=== PATIENT | female | born 1990 | race Two or more races ===

== ENCOUNTER 2018-11-11 23:01 | Emergency (ER) | payer OTHER ==
[~2018-11-11] VITALS: Ht 154.9 cm; Wt 104.3 kg
[2018-11-12 00:18] VITALS: BP 171/88
[2018-11-12 01:10] LABS: Basophils # (auto) 0 uL; Basophils % (auto) 0.3 % (0.0-2.0); Eosinophils # (auto) 0 uL; Eosinophils % (auto) 0.1 % (0.0-7.0); Hematocrit 39.9 % (36.0-46.0); Hemoglobin 13.4 g/dL (12.2-16.2); Lymphocytes # (auto) 0.9 uL; Lymphocytes % (auto) 21.7 % (10.0-50.0); Mean Corpuscular Hemoglobin 28.3 pg (28.0-32.0); Mean Corpuscular Hgb Conc. 33.5 g/dL (32.0-36.0); Mean Corpuscular Volume 84.3 fL (80.0-100.0); Monocytes # (auto) 0.5 uL; Monocytes % (auto) 11.8 % (0.0-12.0); Neutrophils # (auto) 2.8 uL; Neutrophils % (auto) 66.1 % (37.0-80.0); Nucleated Red Blood Cells % 0.1 %; Platelet Count (auto) 114 10^3/uL (140-450); Red Blood Cells 4.73 10^6/uL (4.0-5.20); Red Cell Distribution Width 13.9 % (11.8-14.3); White Blood Cell 4.2 10^3/uL (4.4-10.8)
[2018-11-12 01:25] LABS: Albumin 3.8 g/dL (3.4-5.0); BUN/Creatinine Ratio 15.1; Calcium 8.2 mg/dL (8.5-10.1); Potassium 3.6 mmol/L (3.5-5.1)
[2018-11-12 01:28] LABS: Bilirubin, Total 0.4 mg/dL (0.2-1.0); Total Protein 7.6 g/dL (6.4-8.2)
== END 2018-11-12 03:27 | disposition left against medical advice (07) ==
LOC: ER 23:01
DX: J45.909 Unspecified asthma, uncomplicated (principal); Z53.21 Procedure and treatment not carried out due to patient leaving prior to being seen by health care provider
CPT/HCPCS: 36415; 80053; 85025

== ENCOUNTER 2019-05-07 12:01 | Emergency (ER) | payer OTHER ==
[~2019-05-07] VITALS: Ht 154.9 cm; Wt 90.7 kg
[2019-05-07 12:15] VITALS: BP 122/74
[2019-05-07] MEDS ORDERED: TETRACAINE HCL 0.5% OPTH(EYE) SOLN 4ML EACHEYE ONE (12:45)
[2019-05-07] MEDS ORDERED: FLUORESCEIN SOD 1 MG TEST STRIP OP ONE (12:45)
== END 2019-05-07 13:03 | disposition home or self-care (01) ==
LOC: ER 12:01
DX: S05.01XA Injury of conjunctiva and corneal abrasion without foreign body, right eye, initial encounter (principal); W22.8XXA Striking against or struck by other objects, initial encounter; Y93.89 Activity, other specified; Y99.8 Other external cause status; Y92.89 Other specified places as the place of occurrence of the external cause

== ENCOUNTER 2021-03-24 10:54 | Emergency (ER) | payer OTHER ==
[~2021-03-24] VITALS: Ht 154.9 cm; Wt 86.2 kg
[2021-03-24 11:06] VITALS: BP 193/83
[2021-03-24 12:01] LABS: Urine Bacteria FEW /hpf (None Seen); Urine Blood Negative /uL (Negative); Urine WBC 14 /hpf (0 - 5)
== END 2021-03-24 12:35 | disposition home or self-care (01) ==
LOC: ER 10:54
DX: S39.012A Strain of muscle, fascia and tendon of lower back, initial encounter (principal); N39.0 Urinary tract infection, site not specified; X50.0XXA Overexertion from strenuous movement or load, initial encounter; Y93.89 Activity, other specified; Y92.89 Other specified places as the place of occurrence of the external cause; Y99.8 Other external cause status
CPT/HCPCS: 81001; 81025

== ENCOUNTER 2021-08-31 10:45 | Emergency (ER) | payer OTHER ==
[~2021-08-31] VITALS: Ht 154.9 cm; Wt 90.7 kg
[2021-08-31] MEDS ORDERED: ALBUTEROL SULF 2.5 MG/0.5ML(0.5%) NEB SOLN NEB ONE (11:30)
[2021-08-31] MEDS ORDERED: methylPREDNISolone SOD SUCC 125 MG/2 ML VL IM ONE (11:30)
[2021-08-31] MEDS ORDERED: IPRATROPIUM BROM 0.5 MG/2.5ML INH SOL NEB ONE (11:30)
[2021-08-31 11:39] VITALS: BP 179/78
== END 2021-08-31 12:09 | disposition home or self-care (01) ==
LOC: ER 10:45
DX: J45.901 Unspecified asthma with (acute) exacerbation (principal)
CPT/HCPCS: 94640; 96372; 99283; J2930; J7644

== ENCOUNTER 2024-02-03 11:34 | Emergency (ER) | payer MEDICAID, OTHER ==
[~2024-02-03] VITALS: Ht 154.9 cm; Wt 113.9 kg
[2024-02-03 11:49] VITALS: BP 176/77; PULSE 77; RESP 6; O2SAT 99
[2024-02-03] MEDS ORDERED: OMEP-335 PO (15:07)
== END 2024-02-03 15:23 | disposition home or self-care (01) ==
LOC: ER 11:34
DX: R09.A2 Foreign body sensation, throat (principal); R05.9 Cough, unspecified; J45.909 Unspecified asthma, uncomplicated; Z79.899 Other long term (current) drug therapy
CPT/HCPCS: 70360